=== PATIENT | female | born 1975 | race Caucasian/White ===

== ENCOUNTER 2024-08-18 18:14 | Emergency (ER) | payer BC ==
[~2024-08-18] VITALS: Ht 175.3 cm; Wt 77.1 kg
[2024-08-18 18:35] VITALS: TEMP 98.2
--- NOTE | 2024-08-18 19:10 | ERN ---
ED Note History of Present Illness Stated Complaint: KNEE INJURY Chief Complaint: Knee Injury/Swelling Time Seen by MD: 18:16 Time Seen by Midlevel: 18:16 Dictation: The patient is a 49-year-old female with a history of cholecystectomy who presents to the emergency department with complaints of right knee pain onset prior to arrival after she bent down to hug someone and heard a pop. Patient denies any fall or any other injuries. Allergies: Coded Allergies: No Known Drug Allergies (Unverified Allergy, Unknown, 08/18/24) Past Medical History Past Medical History: Hypothyroid, Other Additional Past Medical Hx: [place] Surgical History: Cholecystectomy RN Note Reviewed/Agreed w/PFSH: Yes Review of System Dictation Constitutional: Negative for fever,chills, and weight loss Eyes: Negative for injury, pain,redness, and discharge ENT: Negative for injury,pain or swelling Cardiovascular: Negative for chest pain, palpitations, and edema Respiratory: Negative for shortness of breath, cough, and wheezing, Abdomen/GI: Negative for abdominal pain, nausea, vomiting, diarrhea, and constipation Back: Negative for injury and pain : Negative for injury, bleeding and discharge MS/Extremity: Negative for injury and deformity positive for right knee pain Skin: Negative for rash, and discoloration Neuro: Negative for headache, weakness, numbness, tingling, and seizure Psych: Negative for suicide ideation, homicidal ideation, and hallucinations Initial Vital Sign VS Vital Signs Date Time Temp Pulse Resp B/P (MAP) Pulse Ox O2 Delivery O2 Flow Rate FiO2 08/18/24 18:35 98.2 93 16 129/107 98 Room Air* 0 21 Physical Exam Dictation Vital Signs reviewed General Appearance: Alert, oriented x 3, no acute distress, well developed, nourished. Head and Face: non-traumatic. Eyes: PERRL, pink conjunctivas, eyelid no trauma, anterior chamber with arcus senilis. Ears: Pinnas intact and no signs of trauma or erythema ear canals clear and no discharge TM no erythema Nose: No discharge, no bleeding. Oropharynx: Mouth normal, tongue pink. pharynx clear,no erythema, tonsils no exudates, no abscesses noted, mucous membrane moist Neck: Supple, non-tender, no thyromegaly, no masses, no JVD, no bruits Breast:Deferred Chest:No tenderness, no crepitus, no paradoxical movement, no retractions Lungs:Clear, well-ventilated, symmetric, no rales, no wheezing, no rhonchi, no stridor, good breath sounds bilaterally Heart: Regular rate, regular rhythm, no murmur, no gallops Vascular: no peripheral edema, pedal pulses 3+ Abdomen: Soft, positive bowel sounds, nondistended, no guarding, nontender, no rebound, no masses no hepatomegaly, no splenomegaly, no Smith's sign, no hernias. Rectal: Deferred Genital: Deferred Neurological: Normal speech, motor function intact, sensory function intact Musculoskeletal: Neck nontender, full range of motion, back nontender, full range of motion, Extremities: nontender, full range of motion , right knee tenderness, no deformities, cap refill less than 2 seconds Skin: Color pink, dry, no turgor, no rash, no lacerations, no abrasions, no con tusions. Lymphatic: Deferred Results (Laboratory/Radiology) Laboratory/Radiology REASON: pain ORDERING PHYSICIAN: LINWOOD FOREMAN PROCEDURE: KNEE 3V RT - KNEE 3VWS RT KNEE 3VWS RT HISTORY: Pain COMPARISON: None TECHNIQUE: 3 images of right knee were obtained. FINDINGS: There is no acute displaced fracture or dislocation. There is soft tissue swelling. Degenerative changes are seen. IMPRESSION: 1. Findings as described above. Labs Reviewed?: Yes ED Course ED Course Orders Procedure Category Date Status Time Knee 3vws Rt RAD 08/18/24 Resulted 18:41 Ketorolac 60mg/2ml PHA 08/18/24 Complete (Toradol 60mg/2ml) 19:00 Apply Khris Wrap (Er) CPOE 08/18/24 Transmitted 19:26 Crutches W/Training CPOE 08/18/24 Transmitted (Er) 19:26 Current Medications Medications (Trade) Dose Ordered Sig/Jasmni Route PRN Reason Start Time Stop Time Status Last Admin Dose Admin Ketorolac Tromethamine (toRADol 60MG/ 2ML) 60 mg ONCE ONCE IM 08/18/24 19:00 08/18/24 19:01 DC Vital Signs Date Time Temp Pulse Resp B/P (MAP) Pulse Ox O2 Delivery O2 Flow Rate FiO2 08/18/24 18:35 98.2 93 16 129/107 98 Room Air 0 08/18/24 18:35 98.2 93 16 129/107 98 Room Air* 0 21 Medical Decision Making MDM The patient is a 49-year-old female with a history of cholecystectomy who presents to the emergency department with complaints of right knee pain onset prior to arrival after she bent down to hug someone and heard a pop. Patient denies any fall or any other injuries. knee xray showed no fractures or dislocations. Patient in no acute distress will be discharged to follow up with PCP and orthopedic. Differential diagnosis: Patellar fracture, knee dislocation, knee sprain Need for hospitalization: Patient does not meet criteria for hospitalization. There are no social concerns with this patient. DX & DISP Disposition: Discharge Departure Impression: Primary Impression: Right knee sprain Condition: Stable Additional Instructions: Please follow up with your PCP in 1-2 as soon as possible. You might need further examination. Please return to ER if symptoms worsen. FOLLOW-UP WITH PRIMARY CARE PROVIDER IN 1 TO 2 DAYS. TAKE MEDICATIONS DIRECTED HERE IN THE EMERGENCY ROOM. OKAY TO CONTINUE HOME MEDICATIONS UNLESS OTHERWISE DISCUSSED DURING YOUR VISIT IN THE EMERGENCY ROOM TODAY. RETURN TO YOUR NEAREST EMERGENCY ROOM IF SYMPTOMS WORSEN OR IF THERE IS NO IMPROVEMENT. CALL 911 IF YOU NEED IMMEDIATE ASSISTANCE. TAKE TYLENOL OR MOTRIN [id number] NEEDED AND IF NO CONTRAINDICATIONS ARE PRESENT. INCREASE ORAL HYDRATION. A WOUND CULTURE OR URINE CULTURE WAS ORDERED HERE IN THE EMERGE [facility] ROOM DEPARTMENT PLEASE FOLLOW-UP WITH PRIMARY CARE PROVIDER AND ADVISE THEM TO GET REPEAT PORTS FROM OUR FACILITY. IF YOU HAD ANY KHRIS WRAP/SPLINTS THAT WERE APPLIED HERE, PLEASE DO NOT REMOVE THEM UNTIL YOU SEE YOUR PRIMARY CARE OR SPECIALTY. Referrals: MANUEL SAUER MD Time of Disposition: 19:24 I have reviewed the case, and I agree with, Diagnosis and Plan LINWOOD FOREMAN DISPLAYER MERCHANDISE Aug 18, 2024 19:10
--- NOTE | 2024-08-18 19:22 | HMCIMG ---
KNEE 3VWS RT HISTORY: Pain COMPARISON: None TECHNIQUE: 3 images of right knee were obtained. FINDINGS: There is no acute displaced fracture or dislocation. There is soft tissue swelling. Degenerative changes are seen. IMPRESSION: 1. Findings as described above.
[2024-08-18] MEDS: ketOROlac 60 MG VIAL (30MG/ML) IM ONE (19:37)
--- NOTE | 2024-08-18 19:50 | NUR ---
GIRISH WRAP APPLIED TO R KNEE AT THIS TIME. CRUTCH USE INSTRUCTIONS GIVEN AT THIS TIME.
[2024-08-18 19:56] VITALS: BP 121/95; PULSE 85; RESP 16; O2SAT 98
== END 2024-08-18 20:02 | disposition home or self-care (01) ==
LOC: EDH 18:14
DX: S83.8X1A Sprain of other specified parts of right knee, initial encounter (principal); E03.9 Hypothyroidism, unspecified; I25.2 Old myocardial infarction; Z90.49 Acquired absence of other specified parts of digestive tract; X58.XXXA Exposure to other specified factors, initial encounter; Y93.89 Activity, other specified; Y92.89 Other specified places as the place of occurrence of the external cause; Y99.8 Other external cause status
CPT/HCPCS: 99284; 73562; 96372; J1885

== ENCOUNTER → 2025-05-30 | Outpatient (CLI) | payer OTHER | END | disposition home or self-care (01) | LOC: RAH 12:51 | PROVIDERS: ATTEND Family Medicine | DX: Z12.31 Encounter for screening mammogram for malignant neoplasm of breast (principal) | CPT/HCPCS: 77067 ==